=== PATIENT | female | born 1985 | race Caucasian/White ===

== ENCOUNTER → 2024-01-03 14:17 | Outpatient (REF) | payer OTHER, SELFPAY | LOC: PNTC 14:17 | PROVIDERS: ATTENDING PHYSICIAN Nurse Practitioner Family | DX: Z34.91 Encounter for supervision of normal pregnancy, unspecified, first trimester (principal) | CPT/HCPCS: 76801 ==

== ENCOUNTER → 2024-01-31 06:47 | Outpatient (REF) | payer OTHER, SELFPAY | LOC: PNTC 06:47 | PROVIDERS: ATTENDING PHYSICIAN Obstetrics & Gynecology | DX: O09.529 Supervision of elderly multigravida, unspecified trimester (principal) | CPT/HCPCS: 76801; 76813 ==

== ENCOUNTER → 2024-03-20 15:46 | Outpatient (REF) | payer OTHER, SELFPAY | LOC: PNTC 15:46 | PROVIDERS: ATTENDING PHYSICIAN Obstetrics & Gynecology | DX: O09.529 Supervision of elderly multigravida, unspecified trimester (principal) | CPT/HCPCS: 76811 ==

== ENCOUNTER → 2024-05-01 11:48 | Outpatient (REF) | payer OTHER, SELFPAY | LOC: PNTC 11:48 | PROVIDERS: ATTENDING PHYSICIAN Obstetrics & Gynecology | DX: O09.529 Supervision of elderly multigravida, unspecified trimester (principal) | CPT/HCPCS: 76816 ==

== ENCOUNTER → 2024-06-19 09:02 | Outpatient (REF) | payer OTHER, SELFPAY | LOC: PNTC 09:02 | PROVIDERS: ATTENDING PHYSICIAN Obstetrics & Gynecology | DX: O09.529 Supervision of elderly multigravida, unspecified trimester (principal) | CPT/HCPCS: 76816 ==

== ENCOUNTER → 2024-07-24 07:48 | Outpatient (REF) | payer OTHER, SELFPAY | LOC: PNTC 07:48 | PROVIDERS: ATTENDING PHYSICIAN Obstetrics & Gynecology | DX: O36.63X0 Maternal care for excessive fetal growth, third trimester, not applicable or unspecified (principal) | CPT/HCPCS: 76816 ==

== ENCOUNTER 2024-08-07 19:28 | Inpatient (IN) | payer OTHER, SELFPAY ==
[2024-08-07 19:41] VITALS: BP 142/83; BMI 33.0
[2024-08-07 20:55] LABS: % Basophils 0.2 % (0-2); % Eosinophils 0.8 % (0-6); % Immature Granulocytes 0.7 % (0-0.5); % Lymphocytes 19.5 % (20.5-51.1); % Monocytes 5.8 % (1.7-9.3); Absolute Eosinophils 0.1 10^3/uL (0-0.7); Absolute Immature Granulocytes 0.1 10^3/uL (0-0.05); Absolute Lymphocytes 1.9 10^3/uL (1.2-3.4); Absolute Monocytes 0.6 10^3/uL (0.1-0.6); Absolute Neutrophils 7.1 10^3/uL (1.4-6.5); Hematocrit 35.7 % (37.0-47.0); Hemoglobin 12.3 g/dL (12.0-16.0); Mean Corp Hgb Conc. 34.5 g/dL (33.0-37.0); Mean Corpuscular Hgb 32.9 pg (27.0-31.0); Mean Corpuscular Volume 95.5 fL (81.0-99.0); Nucleated Red Blood Cells % 0 %; Platelet Count 223 10^3/uL (130-400); Red Blood Cell Count 3.74 10^6/uL (4.20-5.40); Red Cell Dist. Width 13.3 % (11.5-14.5); White Blood Cell Count 9.8 10^3/uL (4.8-10.8)
[2024-08-07 21:21] LABS: Urine Protein 5 mg/dl
[2024-08-07 21:22] LABS: ALT (SGPT) 19 U/L (0-35); AST (SGOT) 30 U/L (14-36); Alkaline Phosphatase 208 U/L (38-126); Blood Urea Nitrogen 11 mg/dl (7-17); Calcium 9.5 mg/dl (8.4-10.2); Carbon Dioxide 18 mmol/L (22-30); Chloride 103 mmol/L (98-107); Estimated Creatinine Clearance > 125 ml/min; Glucose 125 mg/dl (70-99); Potassium 4.2 mmol/L (3.5-5.1); Sodium 133 mmol/L (135-145); Total Bilirubin 0.3 mg/dl (0.2-1.3); Total Protein 6.9 g/dl (6.3-8.2); eGFR > 60.00
[2024-08-07] MEDS: TUMS CHEWABLE TABLET 400 MG PO (21:23)
[2024-08-07] MEDS: PEPCID 20 MG PO (22:00)
[2024-08-08] MEDS: PITOCIN 30 UNITS/NSS 500 ML IV (05:14)
[2024-08-08] MEDS: LR 1000 IV (05:14)
[2024-08-08] MEDS: FEOSOL 325 MG PO (08:40)
[2024-08-08] MEDS: PRENATAL PLUS 1 TABLET PO (08:41)
[2024-08-08] MEDS: PEPCID 20 MG PO ×2 (08:41→19:53)
[2024-08-08] MEDS: VALTREX 500 MG PO (08:41)
[2024-08-08] MEDS: ZOFRAN 4 MG IV (11:09)
[2024-08-08] MEDS: MOTRIN 600 MG PO ×2 (14:19→19:54)
[2024-08-08] MEDS: TYLENOL 650 MG PO ×2 (16:19→19:53)
[2024-08-09] MEDS: MOTRIN 600 MG PO ×2 (04:20→10:04)
[2024-08-09] MEDS: TYLENOL 650 MG PO ×3 (04:20→14:35)
[2024-08-09 05:56] LABS: Hematocrit 32.7 % (37.0-47.0)
[2024-08-09] MEDS: PEPCID 20 MG PO (08:08)
[2024-08-09] MEDS: SENOKOT-S 1 TABLET PO (08:08)
[2024-08-09] MEDS: PRENATAL PLUS 1 TABLET PO (08:08)
[2024-08-09] MEDS: FEOSOL 325 MG PO (08:08)
[2024-08-09] MEDS: VALTREX 500 MG PO (10:03)
[2024-08-10 13:20] LABS: Syphilis/T. pallidum Ab Reflex Negative (Negative)
== END 2024-08-09 15:00 | disposition home or self-care (01) | DRG 807 ==
LOC: LDRP 19:28
PROVIDERS: Obstetrics & Gynecology; ADMITTING PHYSICIAN Obstetrics & Gynecology
PROC: 3E033VJ Introduction of Other Hormone into Peripheral Vein, Percutaneous Approach (ICD-10-PCS; 2024-08-08)
PROC: 10E0XZZ Delivery of Products of Conception, External Approach (ICD-10-PCS; 2024-08-08)
PROC: 10907ZC Drainage of Amniotic Fluid, Therapeutic from Products of Conception, Via Natural or Artificial Opening (ICD-10-PCS; 2024-08-08)
PROC: 0KQM0ZZ Repair Perineum Muscle, Open Approach (ICD-10-PCS; 2024-08-08)
DX: O48.0 Post-term pregnancy (principal); Z37.0 Single live birth; O70.1 Second degree perineal laceration during delivery; Z3A.40 40 weeks gestation of pregnancy; O66.0 Obstructed labor due to shoulder dystocia
CPT/HCPCS: 80053; 82570; 84156; 85014; 85018; 85025; 86780; 86850; 86900; 86901

== ENCOUNTER → 2025-04-20 07:23 | Outpatient (REF) | payer OTHER, SELFPAY | LOC: MRI 3T 07:23 | PROVIDERS: ATTENDING PHYSICIAN Student in an Organized Health Care Education/Training Program; FAMILY PHYSICIAN Student in an Organized Health Care Education/Training Program | DX: M25.572 Pain in left ankle and joints of left foot (principal) | CPT/HCPCS: 73721 ==